=== PATIENT | female | born 1975 | race Caucasian/White ===

== ENCOUNTER → 2017-10-24 | Day surgery (SDC) | payer OTHER ==
--- NOTE | 2017-10-23 18:35 | History & Physical Pre-Op ---
General Information and HPI History of Present Illness: Ravi is a 42-year-old female with a long-standing and worsening complaint of enlarging and painful soft tissue mass left foot. The patient has undergone an extended course of conservative care, including shoe gear and activity modification, rest, immobilization and local steroid injections. None of this is yielded her any significant relief. The patient presents today for preoperative surgical consultation. Allergies/Medications Allergies: Coded Allergies: codeine (Severe, DIFFICULTY BREATHING AND CHEST PRESSURE 10/20/17) Home Med list Ergocalciferol (Vitamin D2) (Vitamin D2) 50,000 UNIT CAPSULE 1 CAP PO QMON SUPPLEMENT (Reported) Fluticasone Propionate 50 MCG/ACTUATION SPRAY.SUSP 1 SPRAY NASB PRN ALLERGIES (Reported) Levothyroxine Sodium 300 MCG TABLET 1 TAB PO DAILY THYROID (Reported) Lisinopril 20 MG TABLET 1 TAB PO DAILY BP (Reported) Metoprolol Succinate 50 MG TAB.ER.24H 1 TAB PO DAILY HEART/BP (Reported) Multivitamin (Gummi Bear Multivitamin) 1 EACH TAB.CHEW 2 TAB PO DAILY BARIATRIC SUPPLEMENT (Reported) Pantoprazole Sodium 40 MG TABLET.DR 1 TAB PO PRN GI (Reported) Past History Medical History Neurological: migraine EENT: NONE Cardiovascular: SVT Respiratory: bronchitis Gastrointestinal: GASTRITIS Hepatic: NONE Renal: NONE Musculoskeletal: ARTHRITIS L FOOT ARTHRITIS R HIP ARTHRITIS LOWER BACK Psychiatric: NONE Endocrine: Derian's thyroiditis, hypothyroidism Blood Disorders: NONE Cancer(s): NONE [employer] ASSISTANT/Reproductive: endometriosis History of MRSA: No History of VRE: No History of CDIFF: No Surgical History Pertinent Surgical History: hysterectomy, GASTRIC BYPASS Past Family/Social History Family History Relations & Conditions if any MOTHER (diabetes, heart disease, htn). FATHER (does not know). Psychosocial History Services at Home None Review of Systems Review of Systems: Unremarkable except for that noted necrotic revisional Exam & Diagnostic Data Physical Exam: Lungs clear bilaterally. Heart sounds rate and rhythm regular. Lower extremity physical exam demonstrates intact pedal pulses bilaterally. Both dorsalis pedis and posterior tibial arteries are palpable bilaterally. Patient without any sensory motor deficits. Deep tendon reflexes grossly intact. Patient noted to have a tender soft tissue mass that is freely mobile, nonpulsatile and firm to touch within the tissues. A straight no underlying osseous involvement. Assessment/Plan Assessment/Plan: Painful and enlarging soft tissue mass left foot. A lengthy discussion reviewing both surgical and conservative options with the patient at bedside and the patient elects to go forward with surgery despite the risks. As Ranked By This Provider Problem List: 1. Neoplasm of unspecified behavior of bone, soft tissue, and skin Attending MD Review Statement Attending Statement Attending MD Statement: examined this patient
[~2017-10-24] VITALS: Ht 180.3 cm; Wt 108.9 kg
[~2017-10-24] MED LIST: DEMEROL HYDROCH50 MG PO; DILAUDID2 M1 PO; FLUTICASONE PRO16 GM NASB; GUMMI BEAR MUL1 EACH PO; IBUPROFEN800 M1 PO; IBUPROFEN800 MG PO; LEVOTHYROXINE200 MC1 PO; LEVOTHYROXINE300 MCG PO; LEVOTHYROXINE50 MCG PO; LISINOPRIL20 M1 PO; LOVENOX40 MG/0.1 SC; METFORMIN HCL1000 M1 PO; METOPROLOL SUCC50 M2 PO; NEURONTIN300 M1 PO; PANTOPRAZOLE SO40 M1 PO; PRINIVIL10 M1 PO; PROTONIX40 M3 PO; TESSALON PERLE100 MG PO; UNITHROID PO; VITAMIN D250000 UNIT PO; ZITHROMAX Z PA250 MG PO
--- NOTE | 2017-10-24 09:19 | Operative Report ---
Operative/Inv Procedure Report Surgery Date: 10/24/17 Name of Procedure: 1 excision of soft tissue mass left foot 2 closure of open surgical wound local random advancement flap Pre-Operative Diagnosis: 1 painful, enlarging soft tissue mass left foot Post-Operative Diagnosis: The same Estimated Blood Loss: scant Surgeon/Benefits Clerk: Wendy SEGOVIA,Chapo Franco DPM Anesthesia: moderate sedation, block Operative/Procedure Note Note: After obtaining informed consent the patient was brought to the operating room and placed on the operating table in the supine position. The patient isn't securely fastened to the operating table utilizing safety belt. After administration of IV sedation, 10 mL of 0.5% Marcaine plain was infiltrated about the patient's left ankle. Well-padded ankle tourniquet was placed about the patient's left lower extremity. 2 g of Ancef were delivered intravenously times one dose. Left foot and ankle then scrubbed prepped and draped in usual aseptic manner. Left lower extremity was elevated to examine to limb, which point the ankle tourniquet inflated 250 mmHg. Attention directed dorsal aspect the left foot where a 4 cm curvilinear incision was made over the soft tissue mass. Skin was signed 15 blade and carried down subtenons tissues. All vital neurovascular structures were identified protected. The extensor retinaculum was then incised exposing a gelatinous filled lesion emanating from the extensor tendon. This was dissected free and passed from the operative field was sent a specimen for final inspection. The opening in the tendon sheath was then repaired with 4-0 Vicryl. A dorsal medial dorsal lateral flap was then developed with undermining, mobilization and advancement adjacent tissue centrally. Exposing the flap was held with 4-0 Vicryl. Subtenons tissues reports a 4-0 Vicryl skin edges reapproximated 4 not Monocryl. Incision was dressed with Steri-Strips Xeroform 4 x 4's Kerlix and Jj wrap. The patient was noted tolerate both procedure and anesthesia well
== END ==
LOC: STS 02:11
DX: M79.89 Other specified soft tissue disorders (principal); I47.1 Supraventricular tachycardia; E06.3 Autoimmune thyroiditis; E03.9 Hypothyroidism, unspecified
CPT/HCPCS: 88305; J0690; J1100; J1885; J2001; J2250